=== PATIENT | female | born 1950 | race Caucasian/White ===

== ENCOUNTER 2017-03-22 10:26 | Day surgery (SDC) | payer OTHER ==
[~2017-03-22] VITALS: Ht 160 cm; Wt 100.0 kg
[~2017-03-22 10:26] MED LIST: ASACOL400 MG PO; BETIMOL 0.100 DROP/5 RIGHT EYE; CHOLESTOFF450 MG PO; CYMBALTA60 MG PO; DULERA 100 MCG/13 GM IH; FLONASE ALLERG9.9 ML BOTH NARES; GLUCOTROL10 MG PO; JANUVIA100 MG PO; LANTUS 10100 UNITS/ SC; LEXAPRO20 MG PO; PROAIR HFA8.5 GM IH; PROTONIX40 MG PO; REMICADE10 MG/ML IV; SINGULAIR10 MG PO; TRADJENTA5 MG PO; TRAMADOL HCL50 MG PO; WELLBUTRIN75 MG PO
[2017-03-22 11:31] VITALS: BP 142/89
[2017-03-22 11:39] LABS: ANION GAP 8 MEQ/L (2-14); CHLORIDE 103 MEQ/L (99-109); GFR ESTIMATE (CALCULATED) 59 mL/min/; GLUCOSE 117 mg/dL (70-99); POTASSIUM 3.9 MEQ/L (3.7-5.4); SAMPLE HEMOLYSIS CHECK 0; SAMPLE ICTERIC CHECK 0; SAMPLE LIPEMIA CHECK 0; SODIUM 137 MEQ/L (136-147); UREA NITROGEN (BUN) 15 mg/dL (9-23)
[2017-03-22 14:45] LABS: POINT-OF-CARE METER ID UU13113675
[2017-03-22 15:35] VITALS: BP 171/790
[2017-03-22 16:28] VITALS: BP 127/57
[2017-03-22 16:50] VITALS: BP 136/63
== END 2017-03-22 17:05 | disposition home or self-care (01) ==
LOC: SDC 10:26
PROVIDERS: Surgery Plastic and Reconstructive Surgery
DX: L97.129 Non-pressure chronic ulcer of left thigh with unspecified severity (principal); L02.415 Cutaneous abscess of right lower limb; L97.119 Non-pressure chronic ulcer of right thigh with unspecified severity; L02.416 Cutaneous abscess of left lower limb; L98.429 Non-pressure chronic ulcer of back with unspecified severity; L57.0 Actinic keratosis; L90.5 Scar conditions and fibrosis of skin; K51.90 Ulcerative colitis, unspecified, without complications; E11.9 Type 2 diabetes mellitus without complications; J44.9 Chronic obstructive pulmonary disease, unspecified; J45.909 Unspecified asthma, uncomplicated; F32.9 Major depressive disorder, single episode, unspecified; K21.9 Gastro-esophageal reflux disease without esophagitis; Z88.0 Allergy status to penicillin; Z79.4 Long term (current) use of insulin; Z79.52 Long term (current) use of systemic steroids; Z79.899 Other long term (current) drug therapy
CPT/HCPCS: 80048; 82948; 88305; 93005; J0131; J0330; J0690; J1100; J1170; J2250; J2405; J3010